=== PATIENT | female | born 1980 | race Caucasian/White ===

== ENCOUNTER 2019-11-20 05:56 | Emergency (ER) | payer MEDICAID ==
[~2019-11-20] VITALS: Ht 167.6 cm; Wt 65.9 kg
[~2019-11-20 05:56] MED LIST: CLIN-5 PO; DIVA500T9 PO; PANT40TA4 PO
[2019-11-20] MEDS ORDERED: ondansetron 4mg rapidly disintigrating tab PO ONE (06:25)
[2019-11-20] MEDS ORDERED: HYDROcodone/acetaminophen 5mg/325mg tablet PO ONE (06:25)
[2019-11-20] MEDS ORDERED: MELO-100 PO (06:25)
[2019-11-20] MEDS ORDERED: acetaminophen 325mg tablet PO ONE (06:25)
[2019-11-20] MEDS ORDERED: LIDOcaine 5% patch TP ONE (06:25)
[2019-11-20] MEDS ORDERED: ketorolac trometh inj. 60 MG/2 ML VIAL IM ONE (06:25)
--- NOTE | 2019-11-20 06:53 | NUR ---
left a message to Elian/boyfriend [phone] for transportation to go home.
[2019-11-20 07:49] VITALS: BP 142/91
== END 2019-11-20 07:52 | disposition home or self-care (01) ==
LOC: ER 05:56
DX: M54.2 Cervicalgia (principal); F12.90 Cannabis use, unspecified, uncomplicated; F15.90 Other stimulant use, unspecified, uncomplicated; Z86.69 Personal history of other diseases of the nervous system and sense organs; Z88.0 Allergy status to penicillin; Z79.899 Other long term (current) drug therapy
CPT/HCPCS: 96372; 99284; J1885

== ENCOUNTER 2019-11-24 02:13 | Emergency (ER) | payer MEDICAID ==
[~2019-11-24] VITALS: Ht 162.6 cm; Wt 68.2 kg
[~2019-11-24 02:13] MED LIST changes: +MELO-100 PO
[2019-11-24] MEDS ORDERED: normal saline 1000ML IV soln IVB ONE (02:40)
[2019-11-24] MEDS ORDERED: diazepam inj 5 MG/ML inj. IV ONE (02:40)
[2019-11-24] MEDS ORDERED: ondansetron/PF 4mg/2ml inj IV ONE (02:40)
[2019-11-24] MEDS ORDERED: morphine 4 MG/ML inj SYRINge IV ONE (02:40)
[2019-11-24] MEDS ORDERED: ACET-3068 PO (03:12)
[2019-11-24] MEDS ORDERED: CYCL-1 PO (03:12)
[2019-11-24 04:27] VITALS: BP 152/100
== END 2019-11-24 04:29 | disposition home or self-care (01) ==
LOC: ER 02:13
DX: S42.401A Unspecified fracture of lower end of right humerus, initial encounter for closed fracture (principal); M54.2 Cervicalgia; R51 Headache; F12.90 Cannabis use, unspecified, uncomplicated; F15.90 Other stimulant use, unspecified, uncomplicated; Z86.69 Personal history of other diseases of the nervous system and sense organs; Z88.0 Allergy status to penicillin; Z79.2 Long term (current) use of antibiotics; Z79.899 Other long term (current) drug therapy; X58.XXXA Exposure to other specified factors, initial encounter; Y93.89 Activity, other specified; Y92.89 Other specified places as the place of occurrence of the external cause; Y99.8 Other external cause status
CPT/HCPCS: 29105; 73080; 96361; 96374; 96375; 99284; J2270; J2405; J3360; J7030

== ENCOUNTER 2023-06-04 03:35 | Emergency (ER) | payer MEDICAID ==
[~2023-06-04] VITALS: Ht 165.1 cm; Wt 92.6 kg
[~2023-06-04 03:35] MED LIST changes: +CLIN-232 PO; -CLIN-5 PO; +CYCL-1 PO; -PANT40TA4 PO; +PANT40TA54 PO
[2023-06-04 03:38] VITALS: BP 184/120; PULSE 107; TEMP 98.3; O2SAT 95
[2023-06-04] MEDS: HYDROcodone/acetaminophen 10/325mg tab PO ONE (04:54)
[2023-06-04] MEDS: LIDOcaine 1% 30ml preserv. free vial SQ STA (04:54)
[2023-06-04] MEDS ORDERED: SULF1TAB49 PO (05:24)
[2023-06-04] MEDS ORDERED: CLIN300C3 PO (05:24)
[2023-06-04] MEDS ORDERED: HYDR-3965 PO (05:24)
[2023-06-04] MEDS ORDERED: DIF150T PO (05:38)
[2023-06-04] MEDS: sulfamethoxazole/trimethoprim DS (800/160mg) tablet PO ONE (05:39)
[2023-06-04] MEDS: clindamycin 150mg capsule PO ONE (05:39)
[2023-06-04 05:41] VITALS: RESP 20
== END 2023-06-04 05:45 | disposition home or self-care (01) ==
LOC: ER 03:36
DX: L02.412 Cutaneous abscess of left axilla (principal); L02.411 Cutaneous abscess of right axilla; F12.90 Cannabis use, unspecified, uncomplicated; F15.90 Other stimulant use, unspecified, uncomplicated; Z88.0 Allergy status to penicillin; Z79.2 Long term (current) use of antibiotics; Z79.899 Other long term (current) drug therapy
CPT/HCPCS: 10061; 99284; A6266; A6253; A6449

== ENCOUNTER 2023-11-30 15:06 | Emergency (ER) | payer MEDICAID ==
[~2023-11-30] VITALS: Ht 167.6 cm; Wt 89.9 kg
[2023-11-30] MEDS ORDERED: SULF1TAB49 PO (15:47)
[2023-11-30] MEDS: CefTRIAXone 1000mg IM Kit (w/lidocaine diluent) IM ONE (16:05)
[2023-11-30 16:11] VITALS: BP 132/86; PULSE 78; RESP 16; TEMP 98.6; O2SAT 99
== END 2023-11-30 16:15 | disposition home or self-care (01) ==
LOC: ER 15:06
DX: L02.415 Cutaneous abscess of right lower limb (principal); F12.90 Cannabis use, unspecified, uncomplicated; F15.90 Other stimulant use, unspecified, uncomplicated; Z88.0 Allergy status to penicillin; Z79.2 Long term (current) use of antibiotics; Z79.899 Other long term (current) drug therapy
CPT/HCPCS: 87070; 96372; 99283; J0696

== ENCOUNTER 2024-04-02 01:25 | Emergency (ER) | payer MEDICAID, OTHER ==
[~2024-04-02] VITALS: Ht 162.6 cm; Wt 87.3 kg
[2024-04-02 02:42] LABS: BILIRUBIN,URINE NEGATIVE (Neg); CLARITY,URINE SLIGHTLY CLOUDY (Clear); COLOR,URINE YELLOW (Yellow); GLUCOSE, URINE NEGATIVE (Neg); KETONES,URINE NEGATIVE (Neg); LEUKOCYTE ESTERASE ,URINE NEGATIVE (Neg); NITRITES, URINE NEGATIVE (Neg); OCCULT BLOOD,URINE SMALL (Neg); PH,URINE 6.5 (4.8-8.0); PROTEIN,URINE NEGATIVE (Neg)
[2024-04-02 02:44] LABS: UA COLLECTION TYPE NON-SPECIFIED
[2024-04-02 02:48] LABS: BACTERIA,URINE 3+ /HPF (Neg); SQUAMOUS EPITHELIAL CELL,UR MODERATE /LPF (FEW)
[2024-04-02] MEDS: ketorolac trometh 15mg/ml vial 15 MG/ML ML IM ONE (03:01)
[2024-04-02 03:08] LABS: BASOPHILS # (AUTO) 0.1 X10'3 (0-0.2); BASOPHILS % (AUTO) 0.6 % (0-1); EOSINOPHILS # (AUTO) 0.4 X10'3 (0-0.9); EOSINOPHILS % (AUTO) 2.1 % (0-6); HEMATOCRIT 38.5 % (35.0-45.0); HEMOGLOBIN 12.7 g/dl (12.0-16.0); LYMPHOCYTES # (AUTO) 1.4 X10'3 (1.1-4.8); LYMPHOCYTES % (AUTO) 8.3 % (21-51); MEAN CORPUSCULAR HEMOGLOBIN 29.3 PG (27.0-31.0); MEAN CORPUSCULAR HGB CONC 33.1 g/dL (33.0-36.5); MEAN CORPUSCULAR VOLUME 88.7 FL (78-98); MEAN PLATELET VOLUME 8.3 FL (7.4-10.4); MONOCYTES # (AUTO) 1.7 X10'3 (0-0.9); MONOCYTES % (AUTO) 9.9 % (2-12); NEUTROPHILS # (AUTO) 13.7 X10'3 (1.8-7.7); NEUTROPHILS % (AUTO) 79.1 % (42-75); PLATELET COUNT 323 X10'3 (140-440); RED BLOOD COUNT 4.34 X10'6 (4.20-5.60); RED CELL DISTRIBUTION WIDTH 13.2 % (11.5-14.5); WHITE BLOOD COUNT 17.3 X10'3 (4.5-11.0)
[2024-04-02 03:10] LABS: ALBUMIN 3.4 G/DL (3.4-5.0); ANION GAP 6 (8-16); BLOOD UREA NITROGEN 12 MG/DL (7-18); BUN/CREATININE RATIO 10.6 (10.0-20.0); CALCIUM 8.4 MG/DL (8.5-10.1); CHLORIDE 101 MMOL/L (99-107); CREATININE 1.13 MG/DL (0.40-0.90); GLUCOSE 102 MG/DL (70-104); POTASSIUM 4.4 MMOL/L (3.5-5.1); SODIUM 135 MMOL/L (135-145); TOTAL CARBON DIOXIDE 28.3 MMOL/L (24-32); eCRCL 56 ML/MIN; eGFR 53 ML/MIN
[2024-04-02 04:36] LABS: URINE HCG NEGATIVE (NEG)
[2024-04-02 04:37] VITALS: BP 141/90; PULSE 111; RESP 18; TEMP 99.1; O2SAT 98
[2024-04-02] MEDS ORDERED: normal saline 1000ML IV soln IVB ONE (04:40)
[2024-04-02] MEDS ORDERED: meperidine/PF 50mg/ml syringe IV ONE (04:40)
[2024-04-02 04:54] LABS: ALANINE AMINOTRANSFERASE 35 U/L (12-78); ALBUMIN/GLOBULIN RATIO 0.8 (1.1-1.5); ALKALINE PHOSPHATASE 95 IU/L (46-116); ASPARTATE AMINO TRANSFERASE 24 U/L (10-37); BILIRUBIN,DIRECT 0.2 MG/DL (0-0.3); BILIRUBIN,TOTAL 0.6 MG/DL (0.1-1.0); TOTAL PROTEIN 7.5 G/DL (6.4-8.2)
[2024-04-02 05:09] LABS: URINE AMPHETAMINE SCREEN POSITIVE (Neg); URINE BARBITUATE SCREEN NEGATIVE (Neg); URINE BENZODIAZEPINES SCREEN NEGATIVE (Neg); URINE CANNABINOID SCREEN POSITIVE (Neg); URINE COCAINE SCREEN NEGATIVE (Neg); URINE METHADONE SCREEN NEGATIVE (Neg); URINE OPIATE SCREEN NEGATIVE (Neg); URINE PHENCYCLIDINE SCREEN NEGATIVE (Neg)
== END 2024-04-02 05:02 | disposition left against medical advice (07) ==
LOC: ER 01:25
DX: N23 Unspecified renal colic (principal); F15.10 Other stimulant abuse, uncomplicated; F12.90 Cannabis use, unspecified, uncomplicated; Z88.0 Allergy status to penicillin
CPT/HCPCS: 36415; 80048; 80076; 80305; 81001; 81025; 85025; 87088; 96372; 99283; J1885

== ENCOUNTER 2024-06-16 03:16 | Emergency (ER) | payer MEDICAID ==
[~2024-06-16] VITALS: Ht 162.6 cm; Wt 83.3 kg
[2024-06-16 03:20] VITALS: BP 182/117; PULSE 94; O2SAT 99
[2024-06-16] MEDS ORDERED: HYDR-3965 PO (04:13)
[2024-06-16] MEDS ORDERED: SULF1TAB49 PO (04:13)
[2024-06-16] MEDS: sulfamethoxazole/trimethoprim DS (800/160mg) tablet PO ONE (04:17)
[2024-06-16 04:19] VITALS: RESP 18
[2024-06-16] MEDS: HYDROcodone/acetaminophen 5mg/325mg tablet PO ONE (04:19)
[2024-06-16 04:20] VITALS: TEMP 98.7
== END 2024-06-16 04:22 | disposition home or self-care (01) ==
LOC: ER 03:17
DX: L02.411 Cutaneous abscess of right axilla (principal); F12.90 Cannabis use, unspecified, uncomplicated; F15.90 Other stimulant use, unspecified, uncomplicated; Z79.899 Other long term (current) drug therapy; Z88.0 Allergy status to penicillin
CPT/HCPCS: 10060; 99283; A6266; A6258; A6449

== ENCOUNTER 2024-08-04 16:48 | Emergency (ER) | payer MEDICAID ==
[2024-08-05] MEDS ORDERED: ONDA-243 PO (14:21)
[2024-08-05] MEDS ORDERED: CEPH500C3 PO (14:23)
== END 2024-08-04 17:27 | disposition left against medical advice (07) ==
LOC: ER 16:48
DX: N15.9 Renal tubulo-interstitial disease, unspecified (principal); Z88.0 Allergy status to penicillin; Z53.21 Procedure and treatment not carried out due to patient leaving prior to being seen by health care provider

== ENCOUNTER 2024-08-05 08:41 | Emergency (ER) | payer MEDICAID ==
[~2024-08-05] VITALS: Ht 162.6 cm; Wt 81.4 kg
[2024-08-05 09:13] LABS: URINE HCG NEGATIVE (NEG)
[2024-08-05 09:15] LABS: BILIRUBIN,URINE NEGATIVE (Neg); CLARITY,URINE CLOUDY (Clear); COLOR,URINE YELLOW (Yellow); GLUCOSE, URINE NEGATIVE (Neg); KETONES,URINE NEGATIVE (Neg); LEUKOCYTE ESTERASE ,URINE SMALL (Neg); NITRITES, URINE NEGATIVE (Neg); OCCULT BLOOD,URINE MODERATE (Neg); PROTEIN,URINE >=300 mg/dl (Neg); UROBILINOGEN,URINE 0.2 E.U/dL (0.2-1.0)
[2024-08-05 09:22] LABS: UA COLLECTION TYPE CLN CATCH MIDSTREAM
[2024-08-05 09:23] LABS: BACTERIA,URINE 2+ /HPF (Neg); RENAL CELLS, URINE FEW /HPF; SQUAMOUS EPITHELIAL CELL,UR FEW /LPF (FEW); TRANSITIONAL EPI CELLS,URINE FEW /HPF; WBC,URINE TNTC /HPF (0-4)
[2024-08-05] MEDS: CefTRIAXone 2gm/D5W 50ml BAG 50 ML IV ONE (10:15)
[2024-08-05 10:57] LABS: BASOPHILS % (AUTO) 0.2 % (0-1); EOSINOPHILS % (AUTO) 0.2 % (0-6); HEMOGLOBIN 13.7 g/dl (12.0-16.0); LYMPHOCYTES # (AUTO) 1.4 X10'3 (1.1-4.8); LYMPHOCYTES % (AUTO) 7.1 % (21-51); MEAN CORPUSCULAR HEMOGLOBIN 28.9 PG (27.0-31.0); MEAN CORPUSCULAR HGB CONC 33.3 g/dL (33.0-36.5); MEAN CORPUSCULAR VOLUME 86.8 FL (78-98); MEAN PLATELET VOLUME 8.7 FL (7.4-10.4); MONOCYTES # (AUTO) 1.1 X10'3 (0-0.9); MONOCYTES % (AUTO) 5.5 % (2-12); NEUTROPHILS # (AUTO) 17.7 X10'3 (1.8-7.7); PLATELET COUNT 230 X10'3 (140-440); RED BLOOD COUNT 4.72 X10'6 (4.20-5.60); RED CELL DISTRIBUTION WIDTH 13.3 % (11.5-14.5); WHITE BLOOD COUNT 20.4 X10'3 (4.5-11.0)
[2024-08-05 11:07] LABS: ALBUMIN 2.9 G/DL (3.4-5.0); ANION GAP 7 (8-16); BLOOD UREA NITROGEN 7 MG/DL (7-18); BUN/CREATININE RATIO 7.4 (10.0-20.0); CALCIUM 8.3 MG/DL (8.5-10.1); CHLORIDE 101 MMOL/L (99-107); CREATININE 0.94 MG/DL (0.40-0.90); GLUCOSE 102 MG/DL (70-104); POTASSIUM 3.6 MMOL/L (3.5-5.1); SODIUM 137 MMOL/L (135-145); TOTAL CARBON DIOXIDE 29.2 MMOL/L (24-32); eCRCL 67 ML/MIN; eGFR 65 ML/MIN
[2024-08-05 12:04] VITALS: TEMP 97.9
[2024-08-05] MEDS: normal saline 500ml IV soln 500 ML IV STA (12:17)
[2024-08-05] MEDS: ketorolac trometh 15mg/ml vial 15 MG/ML ML IV ONE (12:18)
[2024-08-05] MEDS: morphine 4 MG/ML inj SYRINge IV ONE (14:09)
[2024-08-05] MEDS ORDERED: ONDA-243 PO (14:21)
[2024-08-05] MEDS ORDERED: CEPH500C3 PO (14:23)
[2024-08-05 14:27] VITALS: BP 126/61; PULSE 100; RESP 14; O2SAT 98
== END 2024-08-05 14:36 | disposition home or self-care (01) ==
LOC: ER 08:41
DX: N10 Acute pyelonephritis (principal); F12.90 Cannabis use, unspecified, uncomplicated; F15.90 Other stimulant use, unspecified, uncomplicated; Z88.0 Allergy status to penicillin
CPT/HCPCS: 36415; 74176; 80048; 81001; 81025; 83605; 85025; 87040; 87088; 87186; 96361; 96365; 96375; 99285; J0696; J1885; J2270; J7040; 87077

== ENCOUNTER 2024-09-17 11:40 | Emergency (ER) | payer MEDICAID ==
[~2024-09-17] VITALS: Ht 162.6 cm; Wt 176.0 kg
[~2024-09-17 11:40] MED LIST changes: +ONDA-243 PO
[2024-09-17 11:42] VITALS: BP 189/100; PULSE 99; RESP 16; O2SAT 95
--- NOTE | 2024-09-17 13:17 | Physician Documentation ---
History of Present Illness ~ Chief Complaint: See Chief Complaint Stated Complaint: MED CLEARANCE FOR [facility] Time Seen by MD: 12:49 Primary Medical Doctor: Geo FLORES The patient is seen today with complaints of needing of referral as well as med clearance to go to [facility] recovery or any other drug rehab program. Patient currently denies any chest pain, shortness of breath, abdominal pain, nausea, vomiting, diarrhea. Patient has no other concern or complaint at this time and denies any series or concerning medical problems or issues. Tetanus within 5 years?: Yes Medication Reconciliation Allergies: Coded Allergies: Penicillins (Verified Allergy, Unknown, UNKNOWN TOLD A CHILD, 06/16/24) Scheduled Clindamycin HCl (Clindamycin HCl), 1 TAB PO Q6H Divalproex ER* (Depakote ER*), 3 TAB PO TID, (Reported) Meloxicam* (Meloxicam*), 1 TAB PO DAILY Pantoprazole Sodium (Pantoprazole Sodium), 40 MG PO BKF Scheduled PRN Cyclobenzaprine* (Cyclobenzaprine*), 1 TAB PO TID PRN for muscle spasms ONDANSETRON ODT 4mg tablet (Ondansetron Odt), 1 TAB PO Q6H PRN PRN for nausea/vomiting Past Medical History Past Medical History: Seizures Past Surgical History: noncontributory, other Alcohol Use: None Drug Use: marijuana, methamphetamine Lives In: Home Review of Systems Constitutional: Denies: chills, fever, weakness Eyes: Denies: pain, blurred vision ENT: Denies: ear pain, nose pain, throat pain, mouth pain Respiratory: Denies: cough, shortness of breath Cardiovascular: Denies: chest pain, palpitations Gastrointestinal: Denies: abdominal pain, nausea, vomiting Genitourinary: Denies: burning, dysuria Female Genitalia: Denies: vaginal discharge, pelvic pain Neurological: Denies: headache, dizziness Musculoskeletal: Denies: pain, swelling Integumentary: Denies: rash, lesions Allergic/Immunologic: Denies: hives, itching Hematologic/Lymphatic: Denies: no symptoms reported Psychiatric: Denies: depression, anxiety Physical Exam Vital Signs: Temperature: 97.1, Heart Rate: 99, Respiratory Rate: 16, BP: 189/100, Pulse Oximetry: 95, Weight: 176.000 Oxygen Flow Rate: 0 Physical Exam General: Awake and Alert, no acute distress. HEENT: Conjunctiva pink, Sclera clear, Mucus Membranes moist. Neck: Supple without masses and tenderness. Resp: Unlabored. Lungs clear to auscultation bilaterally. Heart: Regular Rate and rhythm, normal S1 and S2 without murmur, rub or gallop. Abdomen: Soft and non tender no organomegaly Extremities: No cyanosis,clubbing or edema. Skin: Warm and Dry. Progress Results/Orders Results/Orders Vital Signs 09/17/24 11:42 Temp 97.1 Pulse 99 Resp 16 B/P (MAP) 189/100 Pulse Ox 95 O2 Flow Rate 0 Medical Decision Making Findings The patient is seen today with complaints of needing of referral as well as med clearance to go to [facility] or any other drug rehab program. Patient currently denies any chest pain, shortness of breath, abdominal pain, nausea, vomiting, diarrhea. Patient has no other concern or complaint at this time and denies any series or concerning medical problems or issues. Patient is medically cleared to enter [facility] and/or any other drug rehab program in the surrounding area. Shaan Wayne refer this patient Marie Mckinnon to the drug rehab program. Patient will return to ED with any worsening, concerning or changing symptoms. Departure Disposition: 01 HOME / SELF CARE / HOMELESS Impression: Primary Impression: Methamphetamine abuse Additional Impression: General medical exam Condition: Stable Discharge Instructions: Methamphetamines Use Disorder Additional Instructions: Patient is medically cleared to enter [facility] and/or any other drug rehab program in the surrounding area. Shaan Wayne refer this patient Marie Mckinnon to the drug rehab program. Patient will return to ED with any worsening, concerning or changing symptoms. Referrals: NO PRIMARY CARE PROVIDER (PCP) Signature Scribe Signature: No scribe Attestation: No scribe ROSMERY WAYNE PAC September 17, 2024 13:17
[2024-09-17 13:30] VITALS: TEMP 97.1
== END 2024-09-17 13:32 | disposition home or self-care (01) ==
LOC: ER 11:41
DX: F15.10 Other stimulant abuse, uncomplicated (principal); F12.90 Cannabis use, unspecified, uncomplicated; Z88.0 Allergy status to penicillin; Z79.899 Other long term (current) drug therapy
CPT/HCPCS: 99281